=== PATIENT | male | born 1970 | race Caucasian/White ===

== ENCOUNTER 2025-04-05 14:54 | Outpatient (AMB) | payer OTHER, SELFPAY ==
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
[2025-04-05 15:17] VITALS: BP 176/124; PULSE 100; TEMP 36.7; O2SAT 95; BMI 40.3
== END 2025-04-05 16:12 | disposition home or self-care (01) ==
PROVIDERS: PCP Student in an Organized Health Care Education/Training Program; Visit Provider Student in an Organized Health Care Education/Training Program
DX: Z23 Encounter for immunization (principal)

== ENCOUNTER → 2025-04-05 14:54 | Outpatient (BNVA) | payer OTHER, SELFPAY | PROVIDERS: Visit Provider Student in an Organized Health Care Education/Training Program | DX: R06.2 Wheezing (principal); Z23 Encounter for immunization; R05.9 Cough, unspecified; S91.115A Laceration without foreign body of left lesser toe(s) without damage to nail, initial encounter; R25.1 Tremor, unspecified; E66.01 Morbid (severe) obesity due to excess calories; I25.2 Old myocardial infarction; Z86.718 Personal history of other venous thrombosis and embolism; Z86.79 Personal history of other diseases of the circulatory system; Z98.84 Bariatric surgery status; W10.9XXA Fall (on) (from) unspecified stairs and steps, initial encounter; Y93.9 Activity, unspecified; Y92.9 Unspecified place or not applicable; Y99.9 Unspecified external cause status; Z13.31 Encounter for screening for depression; Z13.39 Encounter for screening examination for other mental health and behavioral disorders | CPT/HCPCS: 90471; 90656; 96127 ==

== ENCOUNTER 2025-04-07 11:32 | Outpatient (REF) | payer OTHER, SELFPAY ==
--- NOTE | ~2025-04-07 | XR_ITS ---
EXAMINATION: XR CHEST CLINICAL INFORMATION: R06.2 - Wheezing COMPARISON: None available. TECHNIQUE: 2 views of the chest were obtained. FINDINGS: The lungs are well-expanded and clear acute pneumonic process. Heart size and pulmonary vascularity is normal. No gross bony abnormality seen. XR/XR chest 2V IMPRESSION: Unremarkable chest exam. Electronically signed by: Smith Sun MD 04/07/2025 11:58 AM [facility] [place]
[2025-04-07 14:42] LABS: Appearance Urine Cloudy; Glucose Urine UA Negative (Negative); PH 5.0 (5.0-9.0); Specific Gravity - Urine >= 1.030 (1.005-1.025); UMIC TRIGGER UACC YES
[2025-04-07 14:45] LABS: MANUAL DIFF FLAG NO
[2025-04-07 15:14] LABS: Hematocrit 39.6 % (42.0-52.0); Hemoglobin 14.0 g/dl (14.0-18.0); Imm Gran Abs Auto 0.05 X10*3/uL (0.00-0.03); Imm Gran Pct Auto 0.8 % (0.0-0.4); Lymphocytes Absolute Auto 1.1 X10*3/uL (1.2-4.9); Mean Corpuscular HGB Conc 35.4 g/dl (31.0-36.0); Mean Corpuscular Hemoglobin 38.4 pg (27.0-33.0); Mean Corpuscular Volume 108.5 fL (80.0-98.0); NRBC Abs Auto 0.000 X10*3/uL (0.0-0.012); NRBC Pct Auto 0.0 /100WBC (0.0-0.2); Red Blood Count 3.65 X10*6/uL (4.60-5.80); White Blood Count 6.7 X10*3/uL (4.8-10.8)
[2025-04-07 15:17] LABS: UACC Culture Trigger YES
[2025-04-07 15:43] LABS: Platelet Count 92 X10*3/uL (160-400)
[2025-04-07 16:24] LABS: Alanine Aminotransferase 14 U/L (0-40); Albumin Level 3.6 g/dL (3.5-5.0); Alkaline Phosphatase 90 U/L (39-117); Anion Gap 16 (12-20); Aspartate Amino Transferase 45 U/L (5-37); Blood Urea Nitrogen 17 mg/dL (9-16); Calcium 8.5 mg/dL (8.4-10.2); Carbon Dioxide 22 mmol/L (22-29); Chloride 104 mmol/L (96-108); Cholesterol 158 mg/dL (<200); Estimated Glomerular Filt Rate > 60; HDL Cholesterol 72 mg/dL (>40); Magnesium 1.5 mg/dL (1.6-2.6); Potassium 3.8 mmol/L (3.3-5.1); Sodium 138 mmol/L (135-145); Total Protein 6.6 g/dL (6.5-8.0); Triglycerides 74 mg/dL (<150)
[2025-04-07 16:47] LABS: Folate < 2.2 ng/mL (> or = 4.0); Vitamin B12 198 pg/mL (200-900)
[2025-04-09 03:26] LABS: Syphilis Screen Nonreactive (Nonreactive)
[2025-04-09 03:36] LABS: HBS Num1 33.46 mIU/mL (0-7.99); HBsAGNum1 0.48 S/CO (0.00-0.99); HIV Num 1 0.07 S/CO (0.00-0.99); Hepatitis B Surface Antigen Negative (Negative); ~HepC Num1 0.21 S/CO (0.00-0.79); ~Hepatitis B Surface Antibody REACTIVE (Nonreactive); ~Hepatitis C Antibody Nonreactive (Nonreactive)
== END 2025-04-07 11:33 | disposition home or self-care (01) ==
LOC: HO.HMGCX 11:32
PROVIDERS: PCP Dentist General Practice; Visit Provider Student in an Organized Health Care Education/Training Program
DX: Z13.6 Encounter for screening for cardiovascular disorders (principal); Z13.1 Encounter for screening for diabetes mellitus; Z13.29 Encounter for screening for other suspected endocrine disorder; Z11.4 Encounter for screening for human immunodeficiency virus [HIV]; R06.2 Wheezing; R05.9 Cough, unspecified
CPT/HCPCS: 36415; 71046; 80053; 80061; 81001; 82306; 82607; 82746; 83036; 83735; 84443; 85025; 86706; 86780; 86803; 87086; 87340; 87389

== ENCOUNTER → 2025-04-07 11:50 | Outpatient (BNV) | payer OTHER, SELFPAY | PROVIDERS: PCP Dentist General Practice; Visit Provider Radiology Diagnostic Radiology | DX: R06.2 Wheezing (principal) | CPT/HCPCS: 71046 ==

== ENCOUNTER 2025-04-13 16:13 | Outpatient (AMB) | payer OTHER, SELFPAY ==
--- NOTE | 2025-04-13 16:12 | A.OFFPC_ITS ---
Vital Signs 04/13/25 16:13 Height 5 ft 9.49 in Weight 286 lb 4 oz BMI 41.7 BP 134/92 H Blood Pressure Location Lt brachial Position Sitting Respiration 18 Pulse 90 Pulse Source Pulse Oximeter Temp 98.1 F Temp Source Oral Pulse Oximetry (%) 97 Oxygen Delivery Method Room Air Intake Visit Reasons: wound care per Dr Young Intake Note: ?left 2nd toe on foot infected. Has been very fatigue Accompanied by: Self / Same As Patient Allergies No Known Allergies Allergy (Verified 04/13/25 16:14) Medication List - Last Reconciled 04/14/25 by Levar Young MD albuterol sulfate 90 mcg/actuation 2 puffs inhalation QID PRN ammonium lactate 12% 1 appl topical BID azelastine 1 spray intranasal BID benzonatate 200 mg PO BID PRN dextromethorphan-guaifenesin 10-100 mg/5 mL 10 mL PO Q4-6H PRN silver sulfadiazine 1% (Silvadene) 1 appl topical DAILY Tobacco use date assessed: 04/13/25 Dental Screening Dental Screen Date: 04/13/25 Did you have a dental visit in the last 12 months?: Yes Did you have a dental problem in the last 6 months where you did not have access to dental care?: No Was dental information given to patient?: Patient has dentist HPI HPI Comments History of Present Illness Details History of Present Illness The patient is a 55 year old male presenting for follow up on a foot wound and cough. Recurrent Cough: The patient reports a cough with phlegm, which he has experienced before. He was previously seen at an urgent care for the same issue, was prescribed Tessalon Perles, felt better, and then the symptoms recurred after finishing the medication. He is currently taking Tessalon perles ( little yellow ones ) and a nasal spray for the current episode, and reports they are working well and he is feeling much better. He denies symptoms of GERD such as reflux with food. He reports he has not had a primary care doctor in a while. Foot Wound: The patient has a foot wound that is reportedly getting better. He has been per forming dressing changes and applying antibiotic ointment. He notes the wound no longer hurts. Xerosis Cutis: The patient reports significant dry skin on his lower legs, which is very itchy. He has tried various lptv-ukj-vwygwoc remedies, including [place], without relief. Medications: - Tessalon Perles - Unspecified nasal spray - Bacitracin ointment Social History: - Substance Use: The patient acknowledge s that cannabis could be detected in his urine test. Diagnostic Results: - Chest X-ray (recent): Unremarkable, wi th well-expanded and clear lungs. - Blood work: Recently completed, result s pending review. - Urine test: Recently completed; patien t notes it may be concentrated due to poor hydration. Results pending review. Past Medical History - Recurrent cough, previously treated at an urgent care facility. - Does not have an established primary c are doctor. Health Maintenance - Patient is establishing primary care. - Follow-up scheduled in approximately t wo weeks to review recent blood and urine test results and monitor progress. [facility] Medical History (Updated 04/14/25 @ 19:05 by Levar Young MD) Non-ischemic myocardial injury (non-traumatic) Obesity (BMI 35.0-39.9 without comorbidity) HTN (hypertension) LIZETH (obstructive sleep apnea) Surgical History H/O gastric bypass Family History Mother No problems noted. Father Lung cancer Social History Housing: Apartment Patient Tobacco Use Status: Never used Tobacco e-Cigarette/Vaping Use: Never Used service: No Current occupational status: employed Cognitive needs: No Hearing needs: No Vision needs: No Questionnaire PHQ-9 Over the last 2 weeks, how often have you been bothered by any of the following problems? 1. Little interest or pleasure in doing things: not at all 2. Feeling down, depressed, or hopeless: not at all 3. Trouble falling or staying asleep, or sleeping too much: not at all 4. Feeling tired or having little energy: not at all 5. Poor appetite or overeating: not at all 6. Feeling bad about yourself - or that you are a failure or have let yourself or your family down: not at all 7. Trouble concentrating on things, such as reading the newspaper or watching television: not at all 8. Moving or speaking so slowly that other people could have noticed. Or the opposite - being so fidgety or restless that you have been moving around a lot more than usual: not at all 9. Thoughts that you would be better off or of hurting yourself in some way: not at all Total score: 0 Depression Screening Interpretation: Negative Depression Screening Done: Yes Source: Developed by Drs. Navid Cortes, Mindy Nava, Misha Pablo and colleagues, with an educational irena from [email or web address]. Thrive Questionnaire Date Thrive assessed: 04/13/25 I am a: Patient What is your living situation today?: I have a steady place to live Within the past 12 months, did the food you bought not last and you didn't have the money to get more?: Never true Within the past 12 months, did you worry whether your food would run out before you got money to buy more?: Never true Do you have trouble paying for medicines?: No Do you have trouble getting transportation to medical appointments?: No Do you have trouble paying your heating and electricity bill?: No Do you have trouble taking care of your child, family member or friend?: No Do you have trouble with day-to-day activities such as bathing, preparing meals, shopping, managing finances, etc.?: No Are you currently unemployed and looking for a job?: No Are you interested in more education?: No Please select the resources that you would like help with: None THRIVE Score: 0 AUDIT C Alcohol Use Questionnaire (AUDIT-C) 1. How often do you have a drink containing alcohol?: Never 3. How often do you have six or more drinks on one occasion?: Never Total Score: 0 MAYI-7 AMB Questionnaire MAYI-7 Date MAYI - 7 assessed: 04/13/25 Feeling nervous, anxious, or on edge: 0 = Not at all Not being able to stop or control worryin = Not at all Worrying too much about different things: 0 = Not at all Trouble relaxin = Not at all Being so restless that it is hard to sit still: 0 = Not at all Becoming easily annoyed or irritable: 0 = Not at all Feeling afraid as if something awful might happen: 0 = Not at all Total MAYI-7 score (0-4 normal; 5-9 mild; 10-14 moderate; 15-21 severe): 0 Source: Developed by Drs. Navid Cortes, Mindy Nava, Misha Pablo and colleagues, with an educational irena from [email or web address]. Review of Systems Narrative Review of Systems - Respiratory: Reports a productive cough which is improving with medication, but notes it is a recurrent problem. He denies current worsening of symptoms. - Gastrointestinal: Denies symptoms of reflux. - Dermatologic: Reports very dry, itchy skin on his lower legs. - Extremities: Reports his foot is healing and is no longer painful. - Constitutional: Reports feeling significantly better. 10-point ROS reviewed and negative except as noted in HPI Physical exam (Primary Care) Vital Signs: Last Vital Signs Temp 98.1 F 04/13/25 16:13 Pulse 90 04/13/25 16:13 Resp 18 04/13/25 16:13 BP 134/92 H 04/13/25 16:13 Pulse Ox 97 04/13/25 16:13 Oxygen Delivery Method Room Air 04/13/25 16:13 BMI result Body Mass Index 41.7 Tobacco/Smoking Status: Tobacco use Status Tobacco use date assessed 04/13/25 04/13/25 16:22 Patient Tobacco Use Status Never used Tobacco 04/13/25 16:22 e-Cigarette/Vaping Use Never Used 04/13/25 16:22 PHQ-9: PHQ-9 Score PHQ-9: Total score 0 04/13/25 16:22 Depression Screening Interpretation: Negative Thrive Assessment: Date of Thrive Assessment Date Thrive assessed 04/13/25 04/13/25 16:22 Narrative Physical Exam General: Well-appearing, in no acute distress. Vital signs: Within normal limits. HEENT: Normocephalic, atraumatic. PERRLA, EOMI. Conjunctiva clear, sclera anicteric. Oropharynx clear, mucous membranes moist. TMs intact bilaterally. Neck: Supple, no lymphadenopathy, no thyromegaly, no JVD or carotid bruits. Cardiovascular: RRR, normal S1/S2, no murmurs, rubs, or gallops. Peripheral pulses 2+ and symmetric. No edema. Respiratory: Lungs clear to auscultation bilaterally, no wheezes, rales, or rhonchi. Normal effort. Chest x-ray shows lungs are well expanded and clear, unremarkable chest exam. Abdomen: Soft, non-tender, non-distended. Normoactive bowel sounds. No hepatosplenomegaly, no masses. MSK: Full range of motion, no joint swelling or deformity. Normal gait. Skin: Warm, dry, intact. No rashes, lesions, or pallor. Dry skin noted on lower extremities, likely due to venous insufficiency. healing 2nd toe laceration Neuro: Alert and oriented x3. Cranial nerves II-XII intact. Strength 5/5 throughout. Sensation intact. Reflexes 2+ symmetric. Normal coordination and gait. Psych: Appropriate mood and affect. Normal judgment and insight. Coding Level of Care Code Est Pt Level 3 (32169) Add On Problem Visit Only Diagnoses Cough R05.9 Laceration of left foot S91.312A Xerosis cutis L85.3 Morbidly obese E66.01 Venous (peripheral) insufficiency I87.2 Assessment & Plan Assessment & Plan (1) Cough: Code(s): R05.9 - Cough, unspecified Category: Medical (2) Laceration of left foot: Code(s): S91.312A - Laceration without foreign body, left foot, initial encounter Category: Medical (3) Xerosis cutis: Code(s): L85.3 - Xerosis cutis Category: Medical (4) Morbidly obese: Code(s): E66.01 - Morbid (severe) obesity due to excess calories Category: Medical (5) Venous (peripheral) insufficiency: Code(s): I87.2 - Venous insufficiency (chronic) (peripheral) Category: Medical Plan Consent Patient was informed and verbally consented to the use of an ambient scribe for clinic note documentation during this visit. Plan 1. Recurrent Cough - The patient's cough, though recurrent, is improving well with the current regimen of Tessalon perles and a nasal spray. - Differential diagnosis for the recurrence includes postnasal drip from allergies or GERD. - The plan is to first resolve the acute process by having him complete his current course of medication. - If symptoms return, a systematic workup will be initiated, possibly starting with a trial of medication for gastric reflux. 2. Foot Wound - The wound is healing well without signs of infection. - Patient instructed on proper wound care: clean the area well, dry it, and apply bacitracin ointment. - He was advised to use a proper dressing to ensure full coverage, as a simple Band-Aid is insufficient to prevent infection from moisture and bacteria within a sock. - Supplies for home dressing changes were provided. 3. Venous Insufficiency With Xerosis Cutis - The patient has venous insufficiency causing severe dry, itchy skin on his lower legs, which has not responded to vboa-rvf-aivzitp lotions. - Will order vascular studies of the lower extremities to assess blood flow on follow up visit. - Based on the results, a referral to a vascular surgeon may be necessary. - Prescribed ammonium lactate lotion to be used twice daily for moisturization. - Prescribed Silvadene cream to be applied to any areas of redness. Discussion Notes I reviewed the patient's recent chest x-ray with him, explaining that it was unremarkable and that his lungs sounded clear on exam, which was reassuring. We discussed that his cough is improving significantly with his current medications. I explained that its recurrent nature could be due to underlying issues like postnasal drip or GERD, and we would investigate these systematically if the problem persists after the acute infection resolves. I examined his foot wound and noted it is healing well, with no signs of infection. I provided detailed instructions on wound care, emphasizing the need for a proper dressing to cover the wound completely to prevent infection, rather than using a simple Band-Aid. Regarding his dry and itchy lower legs, I explained that this is likely due to v enous insufficiency. I informed him of my plan to order vascular studies to assess blood flow and told him that a referral to a vascular surgeon may be needed depending on the results. I prescribed ammonium lactate lotion for general moisturization and Silvadene cream for any areas of redness. We agreed on a follow-up visit in a couple of weeks to review his recent lab work and assess his progress. Patient Instructions - Continue to take your cough medication as prescribed until it is finished. - For your foot wound, clean it well, dry it, and apply a small amount of bacitracin ointment. - Cover the foot wound with a proper dressing to keep it clean and prevent infection. A simple Band-Aid is not enough. - For the dry skin on your legs, use the prescribed ammonium lactate lotion twice a day. - Apply the Silvadene cream only to the red areas on your skin. - We will be scheduling a test to check the blood flow in your lower legs. - Please make a follow-up appointment for a couple of weeks from now to go over your lab results. Medical Decision Making The patient is a 55-year-old male presenting for follow-up and establishment of care. He has several active issues being addressed. His primary acute complaint is a cough, which is improving on Tessalon Perles and a nasal spray. His chest x-ray was unremarkable and lungs are clear to auscultation, making pneumonia unlikely. Given the recurrent nature of the cough, underlying etiologies such as post-nasal drip or GERD were considered. The plan is to complete the current treatment course and then perform a systematic investigation if symptoms recur. His foot wound is healing well, without any signs of infection on exam. Management is conservative with local wound care, and instructions were reinforced to ensure proper dressing to prevent secondary infection. His new complaint of severe xerosis and pruritus on the lower extremities, which has been refractory to OTC lotions, is suspicious for underlying venous insuf ficiency. Therefore, further workup with lower extremity vascular studies is warranted to confirm the diagnosis and guide management, which may include referral to vascular surgery. In the interim, he was prescribed ammonium lactate lotion for moisturization and Silvadene for any focal inflammation. Finally, the patient is establishing primary care. A follow-up visit was scheduled in two weeks to review recent bloodwork and urinalysis and to assess response to interventions. Total Time Statement 20 min Total time spent caring for the patient today includes pre-visit chart review, documentation, review of laboratory and diagnostic imaging results, medication reconciliation, medically necessary evaluation, counseling on diagnoses, care coordination, ordering appropriate tests and medications, review of tests performed by other providers, reporting test results to the patient, and communication with other healthcare providers. Medications: New ammonium lactate 12% 1 appl topical BID 385 grams 0RF silver sulfadiazine 1% (Silvadene) apply a 1.5 mm thickness 1 appl topical DAILY 50 grams 0RF
[2025-04-13 16:13] VITALS: BP 134/92; PULSE 90; RESP 18; TEMP 36.7; O2SAT 97; BMI 41.7
== END 2025-04-13 16:46 | disposition home or self-care (01) ==
LOC: HO.HMCFMS 16:14
PROVIDERS: PCP Student in an Organized Health Care Education/Training Program; Visit Provider Student in an Organized Health Care Education/Training Program
DX: R05.9 Cough, unspecified (principal); S91.312A Laceration without foreign body, left foot, initial encounter; L85.3 Xerosis cutis; E66.01 Morbid (severe) obesity due to excess calories; I87.2 Venous insufficiency (chronic) (peripheral)